=== PATIENT | female | born 1985 | race Caucasian/White ===

== ENCOUNTER 2017-08-17 10:04 | Inpatient (IN) | payer OTHER ==
[2017-08-17] MEDS ORDERED: OXYTOCIN 30 UNITS/LR 500 ML IV ×4 (10:30→17:30)
[2017-08-17] MEDS ORDERED: MISOPROSTOL 200 MCG TAB PR ×2 (10:30→17:30)
[2017-08-17] MEDS ORDERED: METHYLERGONOVINE 0.2 MG INJ IM ×2 (10:30→17:30)
[2017-08-17] MEDS ORDERED: CARBOPROST 250 MCG INJ IM ×2 (10:30→17:30)
[2017-08-17 10:40] LABS: ADD MAN DIFF? NO
[2017-08-17 10:44] LABS: BASOPHIL # 0.1 10^3/ul (0.0-0.1); BASOPHILS % 0.6 % (0.0-2.0); EOSINOPHILS # 0.1 10^3/ul (0.0-0.5); EOSINOPHILS % 1.1 % (0.0-7.0); HEMATOCRIT 40.8 % (37.0-47.0); HEMOGLOBIN 13.8 g/dl (12.0-16.0); LYMPHOCYTES # 1.6 10^3/ul (0.8-2.9); LYMPHOCYTES % 14.7 % (15.0-51.0); MEAN CORPUSCULAR HEMOGLOBIN 32.7 pg (29.0-33.0); MEAN CORPUSCULAR HGB CONC 33.8 g/dl (32.0-37.0); MEAN CORPUSCULAR VOLUME 96.7 fl (82.0-101.0); MEAN PLATELET VOLUME 10.4 fl (7.4-10.4); MONOCYTE # 1.3 10^3/ul (0.3-0.9); NEUTROPHIL # 7.5 10^3/ul (1.6-7.5); NEUTROPHILS % 70.2 % (39.0-77.0); PLATELET COUNT 171 10^3/UL (140-415); RED BLOOD COUNT 4.22 10^6/ul (4.20-5.40); RED CELL DISTRIBUTION WIDTH 13.7 % (11.5-14.5)
[2017-08-17 10:44] LABS: WHITE BLOOD COUNT 10.6 10^3/ul (4.8-10.8)
[2017-08-17] MEDS: LACTATED RINGER'S 1,000 ML IV ×3 (10:45→14:07)
[2017-08-17 11:16] LABS: INR 0.91; PROTIME 12.3 Sec (11.9-14.9)
[2017-08-17 11:17] LABS: PARTIAL THROMBOPLASTIN TIME 26.9 Sec (25.0-35.0)
[2017-08-17] MEDS: FAMOTIDINE 20 MG INJ IV (11:37)
[2017-08-17] MEDS: CEFAZOLIN 2 GM/50 ML (PMX) 50 ML IV (11:37)
[2017-08-17] MEDS: CITRIC ACID/SODIUM CITRATE 15 ML CUP PO (11:37)
[2017-08-17] MEDS: METOCLOPRAMIDE 10 MG INJ IV (11:41)
[2017-08-17] MEDS ORDERED: BUPIVACAINE 0.75%/DEXT (SPINAL) 2 ML INJ (12:33)
[2017-08-17] MEDS ORDERED: morphine SULFATE/PF (10 MG/10 ML) INJ (12:33)
[2017-08-17] MEDS ORDERED: EPHEDrine 25 MG/5 ML SYG (12:46)
[2017-08-17] MEDS ORDERED: ONDANSETRON 4 MG INJ (13:08)
[2017-08-17] MEDS ORDERED: PHENYLephrine (100 MCG/ML) 10ML SYG (13:09)
[2017-08-17 13:20] LABS: HEPATITIS B SURFACE ANTIGEN NEGATIVE (NEGATIVE)
[2017-08-17] MEDS ORDERED: EPHEDrine SULFATE 50 MG/5 ML SYG (13:27)
[2017-08-17] MEDS ORDERED: ONDANSETRON 4 MG INJ IV (14:00)
[2017-08-17] MEDS ORDERED: FENTAnyl 50 MCG/ML VIAL IV (14:00)
[2017-08-17] MEDS ORDERED: EPHEDrine SULFATE 50 MG/5 ML SYG IV (14:00)
[2017-08-17] MEDS ORDERED: HYDROmorphONE 1 MG/5 ML IV SYRINGE IV (14:00)
[2017-08-17] MEDS ORDERED: MEPERIDINE 25 MG INJ IV (14:00)
[2017-08-17] MEDS ORDERED: PROCHLORPERAZINE 10 MG INJ IV (14:00)
[2017-08-17] MEDS: OXYTOCIN 30 UNITS/LR 500 ML IV ×3 (14:17→21:08)
[2017-08-17] MEDS ORDERED: NALOXONE (0.4 MG/ML) INJ IV (14:30)
[2017-08-17] MEDS ORDERED: HYDROmorphONE 0.5 MG/0.5 ML SYG IV (14:30)
[2017-08-17] MEDS ORDERED: DIPHENHYDRAMINE 50 MG INJ IV (14:30)
[2017-08-17] MEDS ORDERED: ZOLPIDEM 5 MG TAB PO (14:30)
[2017-08-17] MEDS ORDERED: KETOROLAC 30 MG INJ (14:50)
[2017-08-17] MEDS: KETOROLAC 30 MG INJ IV ×2 (14:52→23:46)
[2017-08-17] MEDS: DIPHENHYDRAMINE 50 MG INJ IV (14:53)
[2017-08-17 16:07] LABS: RAPID PLASMA REAGIN NONREACTIVE (NR)
[2017-08-17] MEDS: HYDROmorphONE 0.5 MG/0.5 ML SYG IV (17:27)
[2017-08-17] MEDS: LANOLIN 7 GM TUBE TOP (20:00)
[2017-08-17] MEDS: ONDANSETRON 4 MG INJ IV (20:00)
[2017-08-17] MEDS: SENNA/DOCUSATE NA (8.6MG/50MG) TAB PO (21:00)
[2017-08-17] MEDS: CEFAZOLIN 1 GM/50 ML (PMX) 50 ML IVPB (21:09)
[2017-08-18] MEDS: OXYTOCIN 30 UNITS/LR 500 ML IV ×5 (01:09→17:09)
[2017-08-18] MEDS: LACTATED RINGER'S 1,000 ML IV ×2 (05:07→14:00)
[2017-08-18] MEDS: KETOROLAC 30 MG INJ IV ×2 (05:08→11:20)
[2017-08-18 08:11] LABS: ADD MAN DIFF? NO
[2017-08-18 08:16] LABS: BASOPHIL # 0.1 10^3/ul (0.0-0.1); BASOPHILS % 0.4 % (0.0-2.0); EOSINOPHILS # 0.1 10^3/ul (0.0-0.5); EOSINOPHILS % 0.4 % (0.0-7.0); HEMATOCRIT 26.3 % (37.0-47.0); HEMOGLOBIN 8.7 g/dl (12.0-16.0); LYMPHOCYTES # 1.5 10^3/ul (0.8-2.9); LYMPHOCYTES % 10.7 % (15.0-51.0); MEAN CORPUSCULAR HEMOGLOBIN 32.5 pg (29.0-33.0); MEAN CORPUSCULAR HGB CONC 33.1 g/dl (32.0-37.0); MEAN CORPUSCULAR VOLUME 98.1 fl (82.0-101.0); MEAN PLATELET VOLUME 9.3 fl (7.4-10.4); MONOCYTE # 1.2 10^3/ul (0.3-0.9); MONOCYTES % 8.4 % (0.0-11.0); NEUTROPHILS % 78.9 % (39.0-77.0); PLATELET COUNT 122 10^3/UL (140-415); RED BLOOD COUNT 2.68 10^6/ul (4.20-5.40); RED CELL DISTRIBUTION WIDTH 13.4 % (11.5-14.5)
[2017-08-18 08:16] LABS: WHITE BLOOD COUNT 13.9 10^3/ul (4.8-10.8)
[2017-08-18] MEDS: SENNA/DOCUSATE NA (8.6MG/50MG) TAB PO ×2 (09:31→21:10)
[2017-08-18] MEDS: IBUPROFEN 600 MG TAB PO ×3 (12:00→23:42)
[2017-08-18] MEDS: HYDROCODONE/APAP (5/325) TAB PO ×2 (16:43→21:09)
[2017-08-19] MEDS: IBUPROFEN 600 MG TAB PO ×3 (05:10→18:16)
[2017-08-19 07:29] LABS: ADD MAN DIFF? NO
[2017-08-19 07:34] LABS: WHITE BLOOD COUNT 13.9 10^3/ul (4.8-10.8)
[2017-08-19 07:34] LABS: BASOPHIL # 0.1 10^3/ul (0.0-0.1); BASOPHILS % 0.4 % (0.0-2.0); EOSINOPHILS # 0.3 10^3/ul (0.0-0.5); EOSINOPHILS % 1.9 % (0.0-7.0); HEMATOCRIT 24.5 % (37.0-47.0); HEMOGLOBIN 8.2 g/dl (12.0-16.0); LYMPHOCYTES # 1.8 10^3/ul (0.8-2.9); LYMPHOCYTES % 12.6 % (15.0-51.0); MEAN CORPUSCULAR HEMOGLOBIN 33.6 pg (29.0-33.0); MEAN CORPUSCULAR HGB CONC 33.5 g/dl (32.0-37.0); MEAN CORPUSCULAR VOLUME 100.4 fl (82.0-101.0); MEAN PLATELET VOLUME 9.6 fl (7.4-10.4); MONOCYTE # 1.5 10^3/ul (0.3-0.9); MONOCYTES % 10.6 % (0.0-11.0); NEUTROPHIL # 10.2 10^3/ul (1.6-7.5); NEUTROPHILS % 73.4 % (39.0-77.0); PLATELET COUNT 157 10^3/UL (140-415); RED BLOOD COUNT 2.44 10^6/ul (4.20-5.40); RED CELL DISTRIBUTION WIDTH 13.9 % (11.5-14.5)
[2017-08-19] MEDS: OXYCODONE/ACETAMINOPHEN (5/325) TAB PO ×4 (09:07→23:35)
[2017-08-19] MEDS: SENNA/DOCUSATE NA (8.6MG/50MG) TAB PO ×2 (09:07→21:36)
[2017-08-20] MEDS: IBUPROFEN 600 MG TAB PO ×3 (00:16→11:45)
[2017-08-20] MEDS: OXYCODONE/ACETAMINOPHEN (5/325) TAB PO ×2 (06:14→11:45)
[2017-08-20] MEDS: DIPHTH/TET/ACEL PERTUSS (ADULT) 0.5 ML VIAL IM* (09:00)
[2017-08-20] MEDS: SENNA/DOCUSATE NA (8.6MG/50MG) TAB PO (11:44)
== END 2017-08-20 15:23 | disposition home or self-care (01) | DRG 765 ==
LOC: L-D 10:04 → PP1 16:03
PROVIDERS: Obstetrics & Gynecology
PROC: 10D00Z1 Extraction of Products of Conception, Low, Open Approach (ICD-10-PCS; principal; 2017-08-17 12:30)
DX: O32.1XX1 Maternal care for breech presentation, fetus 1 (principal); O30.043 Twin pregnancy, dichorionic/diamniotic, third trimester; Z3A.37 37 weeks gestation of pregnancy; Z37.2 Twins, both liveborn
CPT/HCPCS: 85025; 85610; 85730; 86592; 86850; 86900; 86901; 87340; 88307; 99464